=== PATIENT | male | born 1990 | race Caucasian/White ===

== ENCOUNTER 2021-10-02 14:44 | Emergency (ER) | payer OTHER ==
[2021-10-02 14:52] VITALS: BP 117/79; PULSE 76; RESP 19; TEMP 97.9; BMI 23.2
== END 2021-10-02 17:23 | disposition home or self-care (01) ==
LOC: JERFT 14:44
DX: S49.92XA Unspecified injury of left shoulder and upper arm, initial encounter (principal); S13.4XXA Sprain of ligaments of cervical spine, initial encounter
CPT/HCPCS: 72050-TC-FY; 73030-TC-LT-FY; 99284-25